=== PATIENT | male | born 1970 | race African-American/Black ===

== ENCOUNTER 2018-11-02 17:18 | Emergency (ER) | payer MEDICAID ==
[~2018-11-02] VITALS: Ht 180.3 cm; Wt 106.6 kg
[~2018-11-02 17:18] MED LIST: ALBUAER3 IN; HYDR-2595; IBUP800T24; PROM25TA5; RANI-226
[2018-11-02] MEDS ORDERED: LIDOCAINE 1% (LOCAL ANESTH.) PF 5ml SDV ID ONE (20:30)
[2018-11-02 20:42] VITALS: BP 128/93
[2018-11-02] MEDS ORDERED: TETANUS-DIPTH-ACEL PERTUSSIS 0.5ML SYRG IM ONE (21:15)
== END 2018-11-02 21:22 | disposition home or self-care (01) ==
LOC: ER 17:22
DX: S50.851A Superficial foreign body of right forearm, initial encounter (principal); J45.909 Unspecified asthma, uncomplicated; K21.9 Gastro-esophageal reflux disease without esophagitis; F12.10 Cannabis abuse, uncomplicated; Z88.0 Allergy status to penicillin; Z79.899 Other long term (current) drug therapy; W22.8XXA Striking against or struck by other objects, initial encounter; Y93.89 Activity, other specified; Y92.89 Other specified places as the place of occurrence of the external cause; Y99.8 Other external cause status
CPT/HCPCS: 10120; 73090; 90471; 90715

== ENCOUNTER 2018-11-12 23:40 | Emergency (ER) | payer MEDICAID ==
[~2018-11-12] VITALS: Ht 182.9 cm; Wt 106.6 kg
[2018-11-13 01:00] VITALS: BP 142/87
== END 2018-11-13 01:04 | disposition home or self-care (01) ==
LOC: ER 23:43
DX: S51.811D Laceration without foreign body of right forearm, subsequent encounter (principal); J45.909 Unspecified asthma, uncomplicated; K21.9 Gastro-esophageal reflux disease without esophagitis; Z88.0 Allergy status to penicillin; Z79.899 Other long term (current) drug therapy; X58.XXXD Exposure to other specified factors, subsequent encounter

== ENCOUNTER 2020-03-07 20:28 | Emergency (ER) | payer MEDICAID ==
[~2020-03-07] VITALS: Ht 182.9 cm; Wt 106.6 kg
[~2020-03-07 20:28] MED LIST changes: -IBUP800T24; +IBUP800T27
[2020-03-07] MEDS ORDERED: MORPHINE SULFATE 4 MG/ML SYR/VIAL IV ONE (21:00)
[2020-03-07] MEDS ORDERED: PROCHLORPERAZINE EDISYLATE 5 MG/ML 2ML VIAL IV ONE (21:00)
[2020-03-07] MEDS ORDERED: SODIUM CHLORIDE 0.9% 1,000 ML IVB ONE (21:00)
[2020-03-07 21:44] LABS: Basophils # (auto) 0 10 ^3/uL (0-0.2); Eosinophils # (auto) 0 10 ^3/uL (0-0.8); Eosinophils % (auto) 0.1 % (0.0-7.0); Monocytes # (auto) 0.8 10 ^3/uL (0-1.3); White Blood Cell 8.3 10^3/uL (4.4-10.8)
[2020-03-07 21:46] LABS: Basophils % (auto) 0.2 % (0.0-2.0); Hematocrit 52.6 % (41.0-53.0); Hemoglobin 17.9 g/dL (13.5-17.5); Lymphocytes # (auto) 1.4 10 ^3/uL (0.4-5.4); Lymphocytes % (auto) 16.3 % (10.0-50.0); Mean Corpuscular Hemoglobin 28.8 pg (28.0-32.0); Mean Corpuscular Hgb Conc. 34.1 g/dL (32.0-36.0); Mean Corpuscular Volume 84.4 fL (80.0-100.0); Monocytes % (auto) 9.7 % (0.0-12.0); Neutrophils # (auto) 6.1 10 ^3/uL (1.6-8.6); Neutrophils % (auto) 73.7 % (37.0-80.0); Nucleated Red Blood Cells % 0.1 %; Red Blood Cells 6.23 10^6/uL (4.5-5.90); Red Cell Distribution Width 13.7 % (11.8-14.3)
[2020-03-07 22:00] VITALS: BP 140/82
[2020-03-07 22:05] LABS: BUN/Creatinine Ratio 16.8; Calcium 9.8 mg/dL (8.5-10.1); Potassium 3.9 mmol/L (3.5-5.1)
[2020-03-07 22:09] LABS: Bilirubin, Total 0.4 mg/dL (0.2-1.0); Total Protein 9.1 g/dL (6.4-8.2)
== END 2020-03-07 23:00 | disposition home or self-care (01) ==
LOC: ER 20:30
DX: R10.13 Epigastric pain (principal); R11.10 Vomiting, unspecified; K21.9 Gastro-esophageal reflux disease without esophagitis; Z90.49 Acquired absence of other specified parts of digestive tract
CPT/HCPCS: 36415; 80053; 83690; 85025; 93005; 96361; 96374; 96375; 99284; J0780; J2270; J7030

== ENCOUNTER 2020-09-09 20:42 | Emergency (ER) | payer MEDICAID ==
[~2020-09-09] VITALS: Ht 182.9 cm; Wt 108.9 kg
[2020-09-09 23:24] LABS: Basophils # (auto) 0 10 ^3/uL (0-0.2); Basophils % (auto) 0.4 % (0.0-2.0); Eosinophils # (auto) 0 10 ^3/uL (0-0.8); Eosinophils % (auto) 0.3 % (0.0-7.0); Hematocrit 49.3 % (41.0-53.0); Hemoglobin 17.1 g/dL (13.5-17.5); Lymphocytes # (auto) 0.6 10 ^3/uL (0.4-5.4); Lymphocytes % (auto) 9.8 % (10.0-50.0); Mean Corpuscular Hemoglobin 29.3 pg (28.0-32.0); Mean Corpuscular Hgb Conc. 34.8 g/dL (32.0-36.0); Mean Corpuscular Volume 84.1 fL (80.0-100.0); Monocytes # (auto) 0.1 10 ^3/uL (0-1.3); Monocytes % (auto) 2.2 % (0.0-12.0); Neutrophils # (auto) 5.6 10 ^3/uL (1.6-8.6); Neutrophils % (auto) 87.3 % (37.0-80.0); Nucleated Red Blood Cells % 1.7 %; Red Blood Cells 5.86 10^6/uL (4.5-5.90); Red Cell Distribution Width 12.5 % (11.8-14.3); White Blood Cell 6.5 10^3/uL (4.4-10.8)
[2020-09-09 23:37] LABS: Albumin 4.1 g/dL (3.4-5.0); Calcium 9.3 mg/dL (8.5-10.1); Potassium 3.8 mmol/L (3.5-5.1)
[2020-09-09 23:41] LABS: BUN/Creatinine Ratio 11.8; Bilirubin, Total 0.7 mg/dL (0.2-1.0); Total Protein 8.7 g/dL (6.4-8.2)
[2020-09-09] MEDS ORDERED: SODIUM CHLORIDE 0.9% 1,000 ML IV ONE (23:45)
[2020-09-09] MEDS ORDERED: MORPHINE SULF INJ 2 MG/ML SYRINGE 1ML IV ONE (23:45)
[2020-09-09] MEDS ORDERED: ONDANSETRON HCL 4 MG/2 ML VIAL IV ONE (23:45)
[2020-09-10] MEDS ORDERED: ONDANSETRON HCL 4 MG/2 ML VIAL IV ONE (01:30)
[2020-09-10] MEDS ORDERED: IOHEXOL 350 MG/ML 100ML IJ ONE (01:42)
[2020-09-10 03:14] LABS: Urine Bacteria NONE SEEN /hpf (None Seen); Urine Blood Negative /uL (Negative); Urine Mucus FEW (None Seen); Urine Specific Gravity 1.019 (1.001-1.035); Urine WBC 1 /hpf (0 - 3)
[2020-09-10 03:30] VITALS: BP 151/95
[2020-09-10] MEDS ORDERED: METOCLOPRAMIDE HCL 5MG/ml INJ 2ml VIAL IV ONE (03:30)
[2020-09-10] MEDS ORDERED: PROMETHAZINE HCL 25 MG/ML 1ML IV ONE (03:30)
[2020-09-10] MEDS ORDERED: PANTOPRAZOLE 40 MG/10 ML VIAL INJ IV ONE (03:30)
[2020-09-10 03:38] LABS: Alcohol, Urine < 3.0 mg/dL (0-10); Amphetamine Screen, Urine NEGATIVE (NEGATIVE); Barbiturate Scree,Urine NEGATIVE (NEGATIVE); Benzodiazephine Screen, Urine NEGATIVE (NEGATIVE); Cannabinoid Screen, Urine POSITIVE (NEGATIVE); Cocaine Screen, Urine NEGATIVE (NEGATIVE); Opiate Scree,Urine NEGATIVE (NEGATIVE); Phencyclidine Screen, Urine NEGATIVE (NEGATIVE)
== END 2020-09-10 04:20 | disposition home or self-care (01) ==
LOC: ER 20:44
DX: E86.0 Dehydration (principal); F12.188 Cannabis abuse with other cannabis-induced disorder; K29.00 Acute gastritis without bleeding; E66.9 Obesity, unspecified; K21.9 Gastro-esophageal reflux disease without esophagitis; J45.909 Unspecified asthma, uncomplicated; Z68.32 Body mass index [BMI] 32.0-32.9, adult; Z90.49 Acquired absence of other specified parts of digestive tract; Z88.0 Allergy status to penicillin
CPT/HCPCS: 36415; 71260; 74177; 80053; 80307; 81001; 83690; 83880; 84484; 85025; 93005; 96361; 96374; 96375; 96376; 99285; C9113; J2270; J2405; J2550; J2765; J7030; Q9967

== ENCOUNTER 2020-09-11 23:35 | Emergency (ER) | payer MEDICAID ==
[~2020-09-11] VITALS: Ht 182.9 cm; Wt 106.6 kg
[2020-09-12 01:55] LABS: Basophils # (auto) 0 10 ^3/uL (0-0.2); Basophils % (auto) 0.4 % (0.0-2.0); Eosinophils # (auto) 0 10 ^3/uL (0-0.8); Eosinophils % (auto) 0.3 % (0.0-7.0); Hemoglobin 18.1 g/dL (13.5-17.5); Monocytes # (auto) 0.9 10 ^3/uL (0-1.3); Neutrophils # (auto) 5.3 10 ^3/uL (1.6-8.6); Red Cell Distribution Width 12.6 % (11.8-14.3)
[2020-09-12 01:56] LABS: Hematocrit 51.9 % (41.0-53.0); Lymphocytes # (auto) 0.9 10 ^3/uL (0.4-5.4); Lymphocytes % (auto) 12.9 % (10.0-50.0); Mean Corpuscular Hgb Conc. 34.8 g/dL (32.0-36.0); Mean Corpuscular Volume 83.1 fL (80.0-100.0); Monocytes % (auto) 12.4 % (0.0-12.0); Red Blood Cells 6.24 10^6/uL (4.5-5.90); White Blood Cell 7.2 10^3/uL (4.4-10.8)
[2020-09-12 02:11] LABS: Alanine Aminotransferase 27 U/L (16-61); Albumin 4.2 g/dL (3.4-5.0); Anion Gap 6 (5-15); Aspartate Aminotransferase 16 U/L (15-37); BUN/Creatinine Ratio 12.9; Blood Urea Nitrogen 13 mg/dL (7-18); Carbon Dioxide 28 mmol/L (21-32); Chloride 106 mmol/L (98-107); GFR African American 102 mL/min; GFR Non-African American 84 mL/min; Glucose 120 mg/dL (74-106); Magnesium 2.3 mg/dL (1.6-2.6); Potassium 3.6 mmol/L (3.5-5.1); Sodium 140 mmol/L (136-145)
[2020-09-12 02:16] LABS: Alkaline Phosphatase 94 U/L (45-117); Bilirubin, Total 0.6 mg/dL (0.2-1.0); Total Protein 8.8 g/dL (6.4-8.2)
[2020-09-12] MEDS ORDERED: hydrALAZINE HCL 20 MG/ML VL IV ONE (02:40)
[2020-09-12] MEDS ORDERED: FAMOTIDINE (10MG/ML) 2ML VL IV ONE (03:45)
[2020-09-12] MEDS ORDERED: SODIUM CHLORIDE 0.9% 1,000 ML IV ONE (03:45)
[2020-09-12] MEDS ORDERED: fentaNYL CITRATE 100 MCG/2 ML VL IV ONE ×2 (03:45→06:45)
[2020-09-12] MEDS ORDERED: ONDANSETRON HCL 4 MG/2 ML VIAL IV ONE (03:45)
[2020-09-12 04:17] LABS: INR 1.11 (0.9-1.15)
[2020-09-12] MEDS ORDERED: IOHEXOL 300 MG/ML 100ML BOTTLE IJ ONE (04:25)
[2020-09-12 06:10] LABS: Urine Bacteria NONE SEEN /hpf (None Seen); Urine Blood Negative /uL (Negative); Urine Mucus FEW (None Seen); Urine WBC 1 /hpf (0 - 3)
[2020-09-12 06:14] LABS: Urine Specific Gravity > 1.050 (1.001-1.035)
[2020-09-12] MEDS ORDERED: DICYCLOMINE HCL (10MG/ML) 2 ML AMPULE IM ONE (06:45)
[2020-09-12 07:17] VITALS: BP 152/101
== END 2020-09-12 07:48 | disposition home or self-care (01) ==
LOC: ER 23:35
DX: K29.00 Acute gastritis without bleeding (principal); R11.2 Nausea with vomiting, unspecified; J45.909 Unspecified asthma, uncomplicated; K21.9 Gastro-esophageal reflux disease without esophagitis; Z88.0 Allergy status to penicillin; Z90.49 Acquired absence of other specified parts of digestive tract
CPT/HCPCS: 36415; 71045; 74177; 80053; 81001; 83605; 83690; 83735; 84484; 85025; 85610; 93005; 96361; 96372; 96374; 96375; 96376; 99285; J0360; J0500; J2405; J3010; J3490; J7030; Q9967